=== PATIENT | female | born 1995 | race Caucasian/White ===

== ENCOUNTER 2017-03-10 11:44 | Emergency (ER) | payer OTHER ==
[~2017-03-10] VITALS: Ht 172.7 cm; Wt 56.0 kg
[2017-03-10 11:46] VITALS: TEMP 36.8; Ht 172.7 cm; Wt 56.0 kg
[2017-03-10] MEDS ORDERED: SODIUM CHLORIDE 0.9% 500ML 500 ML IV STA (12:03)
[2017-03-10] MEDS ORDERED: OPTIRAY 320 IV PRN (12:15)
[2017-03-10 12:33] LABS: BASO % 0.4 %; BASO ABS # 0.04 K/uL (0-0.2); COMPLETE YES; EOS % 1.1 %; HEMATOCRIT 38.1 % (37-47); IG% 0.2 %; LYMPH % 19.4 %; LYMPH ABS # 1.75 K/uL (1.2-3.4); MEAN CELL VOLUME 90.3 fL (80-100); MEAN CORPUSCULAR HEMOGLOBIN 30.8 pg (25-34); MEAN CORPUSCULAR HGB CONC 34.1 g/dl (32-36); MONO % 8.3 %; NEUT % 70.6 %; PLATELET COUNT 246 K/uL (130-400); RED BLOOD COUNT 4.22 M/uL (4.2-5.4); WHITE BLOOD COUNT 9.03 K/uL (4.8-10.8)
[2017-03-10 12:39] LABS: URINE APPEARANCE CLEAR (CLEAR); URINE BILIRUBIN NEG (NEG); URINE COLOR YELLOW; URINE NITRITE NEG (NEG); URINE PH 5.5 (4.5-7.5); URINE SPECIFIC GRAVITY 1.028 (1.000-1.030); UROBILINOGEN NEG (NEG); ZZUR CULT IF INDIC CLEAN CATCH NO
[2017-03-10 12:40] LABS: MANUAL MICROSCOPIC REQUIRED? NO; REVIEW REQ? NO
--- NOTE | 2017-03-10 12:52 | EMERGENCY ROOM VISIT NOTE ---
History First contact with patient: 11:51 Chief Complaint: ABDOMINAL PAIN Stated Complaint: LWR RT ABD. PAIN, BACK PAIN, NO APPETITE Nursing Triage Summary: pt to the ED with c/o since yesterday RLQ pain took gas pills and advil with no relief no urinary complaints History of Present Illness The patient is a 21 year old female who presents to the Emergency Room with complaints of right lower quadrant abdominal pain which began yesterday. The patient states she initially thought the pain was cramps or gas related, and states she took a gas pill yesterday. She states this does not help her symptoms. Patient states her last menstrual period was one to one and half weeks ago. She states the pain is radiating into her back, and she is experiencing pain bilaterally in her mid to lower back. She states she is normally a little bit constipated, and her bathroom habits have not changed. The patient states the symptoms seem to be worse when going to bed and lying down, however they improve with rest. She does have difficulty finding a comfortable position. The patient states that her pain does seem to get better with initial position changes, that worsens again. The patient denies any recent illness, fever, chills, constipation, diarrhea, chest pain, difficulty breathing, abnormal vaginal bleeding, or other associated symptoms. Her only abdominal surgery was a gynecologic surgery several months ago. The patient describes her pain as dull and achy, and rates it 3/10. She has taken Advil for the pain, and has not noticed significant relief. The patient has been able to tolerate food, however she has had a decreased appetite. She has been able to tolerate fluids. The patient denies any nausea or vomiting. Her last oral intake was at approximately midnight last night. Review of Systems A complete 10 point review of systems was reviewed with the patient with pertinent positives and negatives as per history of present illness. All else were negative. Social History Smoking Status: Never Smoker Smokeless Tobacco Use: No Alcohol Use: occasionally Current/Historical Medications No Active Prescriptions or Reported Meds Physical Exam Vital Signs Date Time Temp Pulse Resp B/P (MAP) Pulse Ox O2 Delivery O2 Flow Rate FiO2 03/10/17 16:31 60 18 107/65 100 03/10/17 15:28 50 18 114/71 100 Room Air 03/10/17 13:27 80 16 120/78 100 Room Air 9/14/17 11:46 36.8 81 16 143/82 98 Room Air Physical Exam VITALS: Vitals are noted on the nurse's note and reviewed by myself. Vital signs stable. GENERAL: This is a well-appearing 21-year-old white female, in no acute distress , nondiaphoretic, well-developed well-nourished. SKIN: The skin was without rashes, erythema, edema, or bruising. There is no tenting of the skin. Capillary reflex less than 2 seconds. HEAD: Normocephalic atraumatic. EARS: External auditory canals clear, tympanic membranes pearly [place] without erythema or effusion bilaterally. EYES: Pupils equal round and reactive to light and accommodation. Conjunctivae without injection, sclerae without icterus. Extraocular movements intact. NOSE: Patent, turbinates without inflammation or discharge. No sinus tenderness. MOUTH: Mucous membranes moist. Tonsils are not enlarged. Pharynx without erythema or exudate. Uvula midline. Airway patent. Tongue does not deviate. NECK: Supple without nuchal rigidity. No lymphadenopathy. No thyromegaly. Cervical spine is nontender. No JVD. HEART: Regular rate and rhythm without murmurs gallops or rubs. LUNGS: Clear to auscultation bilaterally without wheezes, rales or rhonchi. No dullness to percussion. No retractions or accessory muscle use. ABDOMEN: Positive bowel sounds x 4. Normal tympanic percussion. Very minimal RLQ tenderness on palpation. Otherwise, the abdomen was soft, nontender, without masses or organomegaly. Shrestha sign negative. No CVA tenderness. No guarding or rebound tenderness. MUSCULOSKELETAL: No muscle atrophy, erythema, or edema noted. Full range of motion without joint tenderness in all extremities. No tenderness to palpation. Normal gait. Strength 5/5 throughout. NEURO: Patient was alert and oriented to person place and time. Normal sensation to light and sharp touch. Deep tendon reflexes 2+ throughout. No focal neurological deficits. Medical Decision & Procedures ER Provider Diagnostic Interpretation: CBC was without leukocytosis, anemia, thrombocytopenia. CMP did not show any electrolyte abnormalities. There is no kidney or liver dysfunction noted. Lipase was negative. Urinalysis was negative. Urine test was negative. CT Abdomen/Pelvis with IV and Oral Contrast: ABD/PELVIS IV AND ORAL CONT CLINICAL HISTORY: 21 years-old Female presenting with RLQ pain, back pain, loss of appetite. TECHNIQUE: Multidetector CT of the abdomen and pelvis was performed after the administration of oral and intravenous contrast. IV contrast: 119 mL of Optiray 320. A dose lowering technique was used consistent with the principles of ALARA (as low as reasonably achievable). COMPARISON: None. CT DOSE (mGy.cm): The estimated cumulative dose is 276.92 mGy.cm. FINDINGS: Motor Runner topogram: Unremarkable. Lung bases: Lung bases clear. No pericardial or pleural effusion. Liver: Perfusional variation along the anterior superior left hepatic lobe. Normal liver morphology. Suggestion of periportal edema. No liver lesion. Patent hepatic vasculature. Biliary: In addition to suspected periportal edema, mild diffuse intrahepatic bladder ductal dilatation is suggested. No extra hepatic biliary ductal dilatation. Normal gallbladder. Pancreas: Normal. Spleen: Normal. Adrenal glands: Normal. Kidneys and ureters: Normal. No hydronephrosis. Ureters difficult to assess secondary to paucity of intra-abdominal fat. Bladder: Mild circumferential bladder wall thickening allowing for underdistention. Pelvic organs: A tampon is present. Bicornuate bicollis uterus. Both cornu contain endometrium. Neither endometrial cavity is abnormally distended. A vaginal septum is not excluded. Both ovaries are present. Dominant follicle in the right ovary measuring 2.4 cm. Bowel: Normal appendix. No bowel obstruction. No bowel wall thickening. Hyperdense material within the today of the stomach likely from recently ingested oral contrast combined with ingestion of water. Peritoneal cavity: Trace free fluid in the pelvis. Vasculature: Aorta and IVC patent and normal in caliber. Lymph nodes: No enlarged lymph nodes in the abdomen or pelvis. Abdominal wall: Normal. Musculoskeletal: Normal. IMPRESSION: 1. Apparent intrahepatic biliary ductal dilatation combined with mild periportal edema. Periportal edema could be secondary to aggressive volume resuscitation or indicative of underlying hepatic inflammation. The presence of choledocholithiasis as a cause of intrahepatic bladder ductal dilatation cannot be excluded. No yeimi evidence of an obstructing mass. The common duct does not appear dilated. No evidence of cholecystitis. Right upper quadrant ultrasound to assess for gallstones could be obtained if clinically warranted. 2. Bicornuate bicollis uterus. A vaginal septum is not excluded. This would be better assessed with dedicated pelvic MR with endovaginal gel. Both ovaries are present. US RUQ: Biliary ultrasound CLINICAL HISTORY: biliary ductal dilation with periportal edema on CT scan abdominal pain COMPARISON STUDY: CT scan dated 03/10/2017 FINDINGS: The pancreas appears sonographically normal. The liver measures 15 cm in length. There is no ductal dilatation. The common bile duct is normal diameter measuring 3 mm. The gallbladder appears sonographically normal. There is no right-sided hydronephrosis. IMPRESSION: Normal biliary ultrasound. Laboratory Results 03/10/17 12:15 Red Blood Count 4.22, Mean Corpuscular Volume 90.3, Mean Corpuscular Hemoglobin 30.8, Mean Corpuscular Hemoglobin Concent 34.1, Mean Platelet Volume 9.0, Neutrophils (%) (Auto) 70.6, Lymphocytes (%) (Auto) 19.4, Monocytes (%) (Auto) 8.3, Eosinophils (%) (Auto) 1.1, Basophils (%) (Auto) 0.4, Neutrophils # (Auto) 6.37, Lymphocytes # (Auto) 1.75, Monocytes # (Auto) 0.75, Eosinophils # (Auto) 0.10, Basophils # (Auto) 0.04 03/10/17 12:15 Test 03/10/17 11:52 03/10/17 12:15 Urine Color YELLOW Urine Appearance CLEAR (CLEAR) Urine pH 5.5 (4.5-7.5) Urine Specific Center 1.028 (1.000-1.030) Urine Protein NEG (NEG) Urine Glucose (UA) NEG (NEG) Urine Ketones NEG (NEG) Urine Occult Blood NEG (NEG) Urine Nitrite NEG (NEG) Urine Bilirubin NEG (NEG) Urine Urobilinogen NEG (NEG) Urine Leukocyte Esterase NEG (NEG) White Blood Count 9.03 K/uL (4.8-10.8) Red Blood Count 4.22 M/uL (4.2-5.4) Hemoglobin 13.0 g/dL (12.0-16.0) Hematocrit 38.1 % (37-47) Mean Corpuscular Volume 90.3 fL (80-100) Mean Corpuscular Hemoglobin 30.8 pg (25-34) Mean Corpuscular Hemoglobin Concent 34.1 g/dl (32-36) Platelet Count 246 K/uL (130-400) Mean Platelet Volume 9.0 fL (7.4-10.4) Neutrophils (%) (Auto) 70.6 % Lymphocytes (%) (Auto) 19.4 % Monocytes (%) (Auto) 8.3 % Eosinophils (%) (Auto) 1.1 % Basophils (%) (Auto) 0.4 % Neutrophils # (Auto) 6.37 K/uL (1.4-6.5) Lymphocytes # (Auto) 1.75 K/uL (1.2-3.4) Monocytes # (Auto) 0.75 K/uL (0.11-0.59) Eosinophils # (Auto) 0.10 K/uL (0-0.5) Basophils # (Auto) 0.04 K/uL (0-0.2) RDW Standard Deviation 39.9 fL (36.4-46.3) RDW Coefficient of Variation 12.2 % (11.5-14.5) Immature Granulocyte % (Auto) 0.2 % Immature Granulocyte # (Auto) 0.02 K/uL (0.00-0.02) Anion Gap 5.0 mmol/L (3-11) Est Creatinine Clear Calc Drug Dose 119.2 ml/min Estimated GFR () 146.4 Estimated GFR (Non- 126.3 BUN/Creatinine Ratio 19.4 (10-20) Calcium Level 9.7 mg/dl (8.5-10.1) Total Bilirubin 0.4 mg/dl (0.2-1) Aspartate Amino Transf (AST/SGOT) 13 U/L (15-37) Alanine Aminotransferase (ALT/SGPT) 16 U/L (12-78) Alkaline Phosphatase 59 U/L (45-117) Total Protein 7.8 gm/dl (6.4-8.2) Albumin 4.3 gm/dl (3.4-5.0) Globulin 3.5 gm/dl (2.5-4.0) Albumin/Globulin Ratio 1.2 (0.9-2) Lipase 103 U/L (73-393) Medications Administered Medications (Trade) Dose Ordered Sig/Starla Route Start Time Stop Time Status Last Admin Dose Admin Sodium Chloride 500 ml @ 999 mls/hr Q31M STAT IV 03/10/17 12:03 03/10/17 12:33 DC 03/10/17 12:27 999 MLS/HR ECG Indication: abdominal pain Rate (beats per minute): 49 Rhythm: sinus bradycardia Findings: no acute ischemic change, no ectopy Comparison ECG Date: no prior available Medical Decision The patient presented with one-day history of right lower quadrant pain radiating into her back. Her tenderness was over McBurney's point. She did not have any other signs or symptoms of appendicitis. Workup performed in the emergency department was completely negative, with no signs of infection or bowel obstruction. Based on CT findings and ultrasound of the liver and gallbladder was performed, which did not reveal any stones. I suspect the patient could be having musculoskeletal pain versus menstrual pain associate with ovulation. I did encourage her to follow up outpatient for further evaluation, and to return to the emergency department for any concerning or worsening symptoms. The patient was encouraged to eat a bland diet for the next 1-2 days and slowly reintroduce foods as tolerated. I did offer the patient pain/nausea medication several times, and she refused medication every time. Differential diagnosis includes: Bowel obstruction, cholecystitis, pancreatitis , urinary tract infection, nephrolithiasis, appendicitis, diverticulitis, ovarian cyst, ovarian torsion, menstruation, musculoskeletal pain, malignancy, and others. Medication Reconcilliation Current Medication List: was personally reviewed by me Blood Pressure Screening Patient's blood pressure: Normal blood pressure Impression Primary Impression: Right lower quadrant abdominal pain Departure Information Dispostion Home / Self-Care Condition GOOD Prescriptions No Active Prescriptions or Reported Meds Referrals No Doctor, Assigned (PCP) Patient Instructions ED Abdominal Pain Unkn Cause, My [facility] Additional Instructions You have been treated in the Emergency Department your Abdominal Pain. Laboratory results and imaging studies have ruled out any emergent causes for your abdominal pain which would warrant admission or surgery. For pain control, you can use the following [id number] medicines (if >12 yo): - Regular strength (325mg/tab) Tylenol (acetaminophen) 2 tabs every 4-6 hours as needed. Do not exceed 9 tablets in a 24 hour period. Avoid taking more than 3 grams (3000 mg) of Tylenol per day. This includes any other sources of acetaminophen you may take on a regular basis. - Regular strength (200 mg/tab) Advil (ibuprofen) 1-2 tabs every 4-6 hours as needed. Do not exceed a dose of 2400 mg per day. Drink plenty of water and stay well hydrated. As with any trip to the Emergency Department, you should follow-up with your Primary Care Provider from today's visit. Return to the emergency department if your symptoms persist despite treatment plan outlined above or if the following symptoms occur: increased fevers, chills , worsening nausea/vomiting, blood in your stool or urine. School Instructions Return To School: 1 day
[2017-03-10 12:53] LABS: BUN/CREATININE RATIO 19.4 (10-20); CALCIUM 9.7 mg/dl (8.5-10.1); CREATININE 0.66 mg/dl (0.60-1.20); POTASSIUM 3.5 mmol/L (3.5-5.1)
[2017-03-10 12:55] LABS: ALB/GLOB RATIO 1.2 (0.9-2)
--- NOTE | 2017-03-10 14:48 | DIAGNOSTIC IMAGING REPORT ---
ABD/PELVIS IV AND ORAL CONT CLINICAL HISTORY: 21 years-old Female presenting with RLQ pain, back pain, loss of appetite. TECHNIQUE: Multidetector CT of the abdomen and pelvis was performed after the administration of oral and intravenous contrast. IV contrast: 119 mL of Optiray 320. A dose lowering technique was used consistent with the principles of ALARA (as low as reasonably achievable). COMPARISON: None. CT DOSE (mGy.cm): The estimated cumulative dose is 276.92 mGy.cm. FINDINGS: Miniature Set Builder topogram: Unremarkable. Lung bases: Lung bases clear. No pericardial or pleural effusion. Liver: Perfusional variation along the anterior superior left hepatic lobe. Normal liver morphology. Suggestion of periportal edema. No liver lesion. Patent hepatic vasculature. Biliary: In addition to suspected periportal edema, mild diffuse intrahepatic bladder ductal dilatation is suggested. No extra hepatic biliary ductal dilatation. Normal gallbladder. Pancreas: Normal. Spleen: Normal. Adrenal glands: Normal. Kidneys and ureters: Normal. No hydronephrosis. Ureters difficult to assess secondary to paucity of intra-abdominal fat. Bladder: Mild circumferential bladder wall thickening allowing for underdistention. Pelvic organs: A tampon is present. Bicornuate bicollis uterus. Both cornu contain endometrium. Neither endometrial cavity is abnormally distended. A vaginal septum is not excluded. Both ovaries are present. Dominant follicle in the right ovary measuring 2.4 cm. Bowel: Normal appendix. No bowel obstruction. No bowel wall thickening. Hyperdense material within the today of the stomach likely from recently ingested oral contrast combined with ingestion of water. Peritoneal cavity: Trace free fluid in the pelvis. Vasculature: Aorta and IVC patent and normal in caliber. Lymph nodes: No enlarged lymph nodes in the abdomen or pelvis. Abdominal wall: Normal. Musculoskeletal: Normal. IMPRESSION: 1. Apparent intrahepatic biliary ductal dilatation combined with mild periportal edema. Periportal edema could be secondary to aggressive volume resuscitation or indicative of underlying hepatic inflammation. The presence of choledocholithiasis as a cause of intrahepatic bladder ductal dilatation cannot be excluded. No yeimi evidence of an obstructing mass. The common duct does not appear dilated. No evidence of cholecystitis. Right upper quadrant ultrasound to assess for gallstones could be obtained if clinically warranted. 2. Bicornuate bicollis uterus. A vaginal septum is not excluded. This would be better assessed with dedicated pelvic MR with endovaginal gel. Both ovaries are present. Electronically signed by: Brad Paris M.D. 03/10/2017 2:46 PM Dictated Date/Time: 03/10/2017 2:38 PM
--- NOTE | 2017-03-10 16:01 | DIAGNOSTIC IMAGING REPORT ---
Biliary ultrasound CLINICAL HISTORY: biliary ductal dilation with periportal edema on CT scan abdominal pain COMPARISON STUDY: CT scan dated 03/10/2017 FINDINGS: The pancreas appears sonographically normal. The liver measures 15 cm in length. There is no ductal dilatation. The common bile duct is normal diameter measuring 3 mm. The gallbladder appears sonographically normal. There is no right-sided hydronephrosis. IMPRESSION: Normal biliary ultrasound. Electronically signed by: Ben Thompson M.D. 03/10/2017 4:00 PM Dictated Date/Time: 03/10/2017 3:58 PM
[2017-03-10 16:31] VITALS: BP 107/65; PULSE 60; O2SAT 100
== END 2017-03-10 16:33 | disposition home or self-care (01) ==
LOC: C.EDB 11:47
DX: R10.31 Right lower quadrant pain (principal)

== ENCOUNTER 2017-10-10 11:52 | Emergency (ER) | payer OTHER ==
[~2017-10-10] VITALS: Ht 172.7 cm; Wt 59.4 kg
[2017-10-10 12:12] VITALS: TEMP 37; Ht 172.7 cm; Wt 59.4 kg
[2017-10-10] MEDS ORDERED: BCPILLS PO (12:25)
--- NOTE | 2017-10-10 13:32 | EMERGENCY ROOM VISIT NOTE ---
ED Visit Note First contact with patient: 12:22 CHIEF COMPLAINT: Sore throat / HISTORY OF PRESENT ILLNESS: This 22-year-old female presents to the ER with chief complaint of sore throat for the last several days. The patient states this morning when she woke up she felt like her throat was swollen. The patient also states that a few days ago she had a temperature of 102. The patient does admit to one episode of nausea and vomiting yesterday. The patient states that she is drinking fluids but states it hurts to eat solids. The patient also admits to history of allergic rhinitis for which she currently is not taking any medications for allergies. REVIEW OF SYSTEMS: 6 system review was performed and was negative unless stated otherwise in history of present illness. PMH: The patient is healthy; allergic rhinitis, asthma SOCIAL HISTORY: Patient denies tobacco use but admits to occasional alcohol use. PHYSICAL EXAM: Vital Signs were reviewed: Reviewed Nurse's notes and agree. . GENERAL: 22-year-old female appears in no acute distress. MENTAL STATUS: Alert, oriented, coherent. EARS: Canals clear. TMs good light reflex, no erythema or fluid level noted. NOSE: Turbinates appear pale and boggy bilaterally. PHARYNX : Moderate erythema, no edema noted. Cobblestoning noted to the posterior pharynx. No exudate noted. Airway is adequate. NECK: Supple, non-tender. Bilateral anterior cervical lymphadenopathy right greater than left. LUNGS: Clear to auscultation without wheezes rales or rhonchi. CARDIAC: Regular rate and rhythm without murmur. SKIN: No rashes noted. EMERGENCY COURSE: The patient was evaluated. Rapid strep was negative. Culture is pending. The patient was informed of the findings and discharged home in stable condition. DIAGNOSIS: Acute pharyngitis, probably viral Allergic rhinitis DISCHARGE INSTRUCTIONS & TREATMENT: Read the pharyngitis (sore throat) instruction sheet. Call for throat test result tomorrow. Ibuprofen 600 mg for pain and fever every 6 hours. Recommend [id number] Zyrtec or Claritin daily. If symptoms persist or worsen, seek further medical attention. Current/Historical Medications Scheduled Control Pills ( Control Pills), 1 TAB PO DAILY Allergies Coded Allergies: Amoxicillin (Unverified Allergy, Unknown, rash, 03/10/17) Latex (Unverified Allergy, Unknown, rash, 03/10/17) Vital Signs Date Time Temp Pulse Resp B/P (MAP) Pulse Ox O2 Delivery O2 Flow Rate FiO2 10/10/17 12:16 99 Room Air 10/10/17 12:12 37.0 66 18 125/89 99 Room Air Departure Information Referrals No Doctor, Assigned (PCP) Patient Instructions [facility]
[2017-10-10 13:49] VITALS: BP 115/71; PULSE 64; O2SAT 97
--- NOTE | 2017-10-12 14:52 | Pharmacy Progress Note ---
ED Pharmacist Culture FollowUp Date of Service: Oct 12, 2017. Group C Strep isolated in throat culture. Does not require treatment unless patient is not improving. Called patient - left voicemail requesting call back. Provided ED phone #.
== END 2017-10-10 13:50 | disposition home or self-care (01) ==
LOC: C.EDB 11:53 → C.EDD 13:50
DX: J02.9 Acute pharyngitis, unspecified (principal); J30.9 Allergic rhinitis, unspecified; Z88.0 Allergy status to penicillin; Z91.040 Latex allergy status